=== PATIENT | female | born 2000 | race Native Hawaiian/Other Pacific Islander ===

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

== ENCOUNTER 2018-12-21 23:09 | Inpatient (IN) | payer MEDICAID ==
[2018-12-21] MEDS ORDERED: XYLOCAINE 2% INFILTRATI ONE (23:39)
[2018-12-21] MEDS ORDERED: MINERAL OIL PO PRN (23:39)
[2018-12-21] MEDS ORDERED: BRETHINE SUB-Q PRN (23:39)
[2018-12-21] MEDS ORDERED: SUBLIMAZE IV PRN (23:39)
[2018-12-21] MEDS ORDERED: AMPICILLIN/NS 2 GM/100 ML 2 GM/100 ML BAG IV ONE (23:39)
[2018-12-21] MEDS ORDERED: STADOL IV PRN (23:39)
[2018-12-21] MEDS ORDERED: BRETHINE IVP PRN (23:39)
[2018-12-21] MEDS ORDERED: PITOCin/NS 20 UNIT/1000ML DRIP 20 UNITS/1,000 ML BAG IV SCH (23:45)
[2018-12-21] MEDS ORDERED: LACTATED RINGERS 1,000 ML IV SCH (23:45)
[2018-12-22 00:32] LABS: Hematocrit 31.1 % (30.3-42.9); Hemoglobin 9.7 gm/dl (10.1-14.3); Mean Corpuscular HGB Conc 31 % (30-34); Mean Corpuscular Volume 71 fl (79-97); Platelet Count 302 K/mm3 (140-440); Red Blood Count 4.39 M/mm3 (3.65-5.03); Red Cell Distribution Width 18.8 % (13.2-15.2)
[2018-12-22] MEDS ORDERED: XYLOCAINE 2% INFILTRATI ONE (01:58)
--- NOTE | 2018-12-22 02:12 | History and Physical Report ---
History of Present Illness Date of examination: 12/22/18 Date of admission: 12/22/2018 Chief complaint: contractions History of present illness: 18y/o @ 37+3 weeks presents in active labor with regular contractions. The patient denies leakage of fluid. records are not available. GBS status is unknown. Past History Past Medical History: no pertinent history Past Surgical History: no surgical history Social history: single - Obstetrical History Expected Date of Delivery: 01/08/19 Actual Gestation: 37 Week(s) 4 Day(s) : 1 Para: 0 Hx # Term Pregnancies: 0 Number of Pregnancies: 0 Spontaneous Abortions: 0 Induced : 0 Number of Living Children: 0 Medications and Allergies Allergies Allergy/AdvReac Type Severity Reaction Status Date / Time No Known Allergies Allergy Verified 03/08/15 22:59 Home Medications Medication Instructions Recorded Confirmed Last Taken Type raNITIdine HCl [Zantac] 150 mg PO Q12H #30 tablet 03/09/15 12/22/18 Unknown Rx Dicyclomine [Bentyl] 10 mg PO TID PRN #20 capsule 06/23/17 12/22/18 Unknown Rx Nitrofurantoin Monohyd/M-Cryst 100 mg PO BID #14 capsule 06/23/17 12/22/18 Unkn own Rx [Macrobid 100 mg Capsule] Vitamin 1 tab 12/22/18 12/21/18 History 0800 Active Meds: Active Medications Butorphanol Tartrate (Stadol) 2 mg IV Q2H PRN PRN Reason: Pain , Severe (7-10) Ephedrine Sulfate (Ephedrine Sulfate) 10 mg IV Q2M PRN PRN Reason: Hypotension Fentanyl (Sublimaze) 100 mcg IV Q2H PRN PRN Reason: Labor Pain Last Admin: 12/22/18 00:28 Dose: 100 mcg Documented by: Oxytocin/Sodium Chloride (Pitocin/Ns 20 Unit/1000ml Drip) 20 units in 1,000 mls @ 125 mls/hr IV DIRECT BERNADETTE Lactated Ringer's (Lactated Ringers) 1,000 mls @ 125 mls/hr IV DIRECT BERNADETTE Last Admin: 12/22/18 00:17 Dose: 125 mls/hr Documented by: Ampicillin Sodium (Ampicillin/Ns 1 Gm/50 Ml) 1 gm in 50 mls @ 100 mls/hr IV Q4HR BERNADETTE; Protocol Mineral Oil (Mineral Oil) 30 ml PO QHS PRN PRN Reason: Constipation Terbutaline Sulfate (Brethine) 0.25 mg SUB-Q ONCE PRN PRN Reason: Hyperstimulation/Hypertonicity Terbutaline Sulfate (Brethine) 0.25 mg IVP ONCE PRN PRN Reason: Hyperstimulation/Hypertonicity Review of Systems All systems: negative Genitourinary: pelvic pain, contractions, no leakage of fluid - Vital Signs Vital signs: Vital Signs Pulse BP 69 139/69 12/21/18 23:27 12/21/18 23:27 Temp Pulse Resp BP Pulse Ox 98.0 F 77 16 131/85 12/21/18 23:28 12/22/18 01:59 12/22/18 00:28 12/22/18 01:59 - Physical Exam Breasts: Positive: deferred Cardiovascular: Regular rate Lungs: Positive: Clear to auscultation Abdomen: Positive: normal appearance Results Result Diagrams: 12/21/18 00:18 Abnormal lab results 12/21/18 Range/Units 00:18 WBC 15.2 H (4.5-11.0) K/mm3 Hgb 9.7 L (10.1-14.3) gm/dl MCV 71 L (79-97) fl MCH 22 L (28-32) pg RDW 18.8 H (13.2-15.2) % All other labs normal. Assessment and Plan - Patient Problems (1) Active labor Current Visit: Yes Status: Acute Plan to address problem: admit to L&D and initiate antibiotics
--- NOTE | 2018-12-22 02:24 | Procedure Note ---
OB Delivery Note - Delivery Date of Delivery: 12/22/18 Surgeon: JONATHON GONZALEZ Estimated blood loss: 200cc - Vaginal Delivery presentation: vertex Delivery position: OA Intrapartum events: meconium Delivery monitor: external FHT, external uterine Route of delivery: Delivery placenta: spontaneous Delivery cord: nuchal cord, 3 umbilical vessels Episiotomy: none Delivery laceration: 2nd degree Delivery repair: vicryl Anesthesia: local Delivery comments: Patient progressed to C/C/+2 after spontaneous rupture of membranes with meconium stained fluid. After delivery of the head, a nuchal cord was manually reduced. The shoulders delivered without difficulty. The cord clamped and cut and the infant passed to [facility] for further evaluation. The placenta delivered spontaneously intact with a 3VC. The is male with apgars of 8/9 and weight of 7lbs 1oz. The patient sustained a midline 2nd degree laceration injected with xylocaine and repaired with 2-0 vicryl. EBL 200ml. - A at 1 minute: 8 at 5 minutes: 9 Infant Gender: Male (weight 7lbs 1oz.)
[2018-12-22] MEDS ORDERED: NORCO 5/325 PO PRN (02:25)
[2018-12-22] MEDS ORDERED: MILK OF MAGNESIA PO PRN (02:25)
[2018-12-22] MEDS ORDERED: TYLENOL PO PRN (02:25)
[2018-12-22] MEDS ORDERED: LANSINOH TP PRN (02:25)
[2018-12-22] MEDS ORDERED: TUCKS PAD TP PRN (02:25)
[2018-12-22] MEDS ORDERED: CYTOTEC PR ONE (02:46)
[2018-12-22] MEDS ORDERED: SODIUM CHLORIDE FLUSH SYRINGE 10 ML IV NR (03:00)
[2018-12-22] MEDS: IBUPROFEN PO SCH ×3 (03:40→22:16)
[2018-12-22] MEDS ORDERED: AMPICILLIN/NS 1 GM/50 ML 1 GM/50 ML BAG IV SCH (03:41)
[2018-12-22] MEDS ORDERED: PITOCin/NS 20 UNIT/1000ML DRIP 20,000 MILLIUNITS/1,000 ML BAG IV ONE (13:28)
[2018-12-22] MEDS ORDERED: METHERGINE IM PRN (13:29)
[2018-12-22] MEDS ORDERED: DERMOPLAST TP PRN (13:42)
--- NOTE | 2018-12-22 13:45 | Event Note ---
Date: 12/22/18 I received a call from [facility], who reported that the patient was passing heavy lochia. She soaked a baby diaper and pad in about 1 hour. Upon exam, no active bleeding was noted. Fundus was firm and deviated to the left. Pt stated she had not voided since after , about 11 hours prior. Up to void, output 400mL. No clots noted. Plan to continue voiding every hour. Methergine and Pitocin PRN. Dr. Crowley made aware.
[2018-12-22] MEDS ORDERED: PITOCin/NS 20 UNIT/1000ML DRIP 20 UNITS/1,000 ML BAG IV SCH (14:00)
[2018-12-22 15:08] LABS: Hematocrit 24.9 % (30.3-42.9); Hemoglobin 7.9 gm/dl (10.1-14.3)
[2018-12-23] MEDS: IBUPROFEN PO SCH ×3 (05:06→19:48)
[2018-12-23] MEDS ORDERED: BOOSTRIX IM ONE (06:30)
--- NOTE | 2018-12-23 08:27 | Progress Note ---
Assessment and Plan A/P PPD 1 s/p continue care consider d/c home tomorrow Subjective - Subjective Date of service: 12/23/18 Principal diagnosis: s/p Patient reports: appetite normal, voiding normally, pain well controlled, flatus, ambulating normally [place]: doing well Objective - Vital Signs Latest vital signs: Vital Signs Temp Pulse Resp BP BP Pulse Ox 12/22/18 23:20 98.2 F 66 20 116/74 99 12/22/18 17:05 98.2 F 73 20 125/77 12/22/18 14:05 70 99 12/22/18 14:02 98.6 F 16 120/63 12/22/18 12:45 98.2 F 74 20 108/67 12/22/18 08:45 99.9 F H 79 20 110/55 Intake and Output 12/22/18 12/23/18 12/23/18 23:59 07:59 15:59 Intake Total 560 Balance 560 Intake: Oral 560 Other: Total, Intake Amount 240 # Voids Void 1 # Bowel Movements 1 - Exam Breasts: Present: normal Cardiovascular: Present: Regular rate, Normal S1 Lungs: Present: Clear to auscultation, Normal air movement Abdomen: Present: normal appearance, soft, normal bowel sounds. Absent: distention, tenderness, guarding Vulva: both: normal Uterus: Present: normal, firm. Absent: bogginess Extremities: Present: normal Deep Tendon Reflex Grade: Normal +2 - Labs Labs: Abnormal lab results 12/22/18 Range/Units 14:56 Hgb 7.9 L (10.1-14.3) gm/dl Hct 24.9 L D (30.3-42.9) %
[2018-12-24] MEDS: IBUPROFEN PO SCH ×3 (01:12→12:10)
--- NOTE | 2018-12-24 10:21 | Discharge Summary ---
Providers - Providers Date of Admission: 12/21/18 23:55 Date of discharge: 12/24/18 Attending physician: JONATHON GONZALEZ Primary care physician: JONATHON GONZALEZ Hospitalization Reason for admission: active labor Delivery: Episiotomy: none Laceration: 2nd degree Incision: normal, dry [place] baby: male Hospital course: unremarkable hospital course Condition at discharge: Good Disposition: DC-01 TO HOME OR SELFCARE Plan - Provider Discharge Summary Activity: routine, no sex for 6 weeks, no strenuous exercise Diet: routine Instructions: routine Additional instructions: [] Smoking cessation referral if applicable(refer to patient education folder for contact #) [] Refer to [facility]'s [facility] Booklet Call your doctor immediately for: * Fever > 100.5 * Heavy vaginal bleeding ( >1 pad per hour) * Severe persistent headache * Shortness of breath * Reddened, hot, painful area to leg or breast * Drainage or odor from incision. * Keep incision clean and dry at all times and follow doctor's instructions regarding bathing/showering - Follow up plan Follow up: JONATHON GONZALEZ MD [Primary Care Provider] - 01/19/19
--- NOTE | 2018-12-24 10:22 | Progress Note ---
Assessment and Plan A/P PPD 2 s/p continue care discharge hoem today with f/u in 4 weeks Subjective - Subjective Date of service: 12/24/18 Principal diagnosis: s/p Patient reports: appetite normal, voiding normally, pain well controlled, flatus, ambulating normally [place]: doing well Objective - Vital Signs Latest vital signs: Vital Signs Temp Pulse Resp BP Pulse Ox 12/24/18 07:50 97.9 F 18 128/79 12/24/18 00:36 97.9 F 82 20 112/63 98 12/23/18 19:48 18 12/23/18 17:01 97.6 F 83 18 123/79 97 Intake and Output 12/23/18 12/24/18 12/24/18 23:59 07:59 15:59 Intake Total 480 360 Balance 480 360 Intake: Oral 480 Intake, Free Water 360 Other: Total, Intake Amount 480 # Voids Void 2 # Bowel Movements 1 - Exam Breasts: Present: normal Cardiovascular: Present: Regular rate, Normal S1 Lungs: Present: Clear to auscultation Abdomen: Present: normal appearance, soft. Absent: distention, tenderness, guarding Vulva: both: normal Uterus: Present: normal, firm, fundal height below umbilicus. Absent: bogginess, tenderness Extremities: Present: normal Deep Tendon Reflex Grade: Normal +2 Incision: Present: normal
[2018-12-24 14:14] VITALS: BP 132/89
== END 2018-12-24 14:00 | disposition home or self-care (01) | DRG 775 ==
LOC: TRG 23:09 → LD 23:52 → TRG 23:54 → LD 23:55 → OB 12-22 04:29
PROVIDERS: ADMIT Obstetrics & Gynecology; ATTEND Obstetrics & Gynecology
PROC: 10E0XZZ Delivery of Products of Conception, External Approach (ICD-10-PCS; principal; 2018-12-22)
PROC: 0KQM0ZZ Repair Perineum Muscle, Open Approach (ICD-10-PCS; 2018-12-22)
PROC: 3E0234Z Introduction of Serum, Toxoid and Vaccine into Muscle, Percutaneous Approach (ICD-10-PCS; 2018-12-23)
DX: O77.0 Labor and delivery complicated by meconium in amniotic fluid (principal); Z37.0 Single live birth; Z3A.37 37 weeks gestation of pregnancy; Z23 Encounter for immunization; O69.81X0 Labor and delivery complicated by cord around neck, without compression, not applicable or unspecified; O70.1 Second degree perineal laceration during delivery
CPT/HCPCS: 36415; 85014; 85018; 85027; 86592; 86850; 86900; 86901; 90471; 90715; G0378; J0290; J2590; J3010; J7120